=== PATIENT | female | born 1990 | race Two or more races ===

== ENCOUNTER 2021-08-24 19:53 | Emergency (ER) | payer SELFPAY ==
[~2021-08-24] VITALS: Ht 162.6 cm; Wt 95.0 kg
[2021-08-24] MEDS ORDERED: OXYMETAZOLINE HCL NASAL SPRAY 15ML BOTHNSTRLS ONE (23:15)
[2021-08-25 00:03] VITALS: BP 122/72
== END 2021-08-25 00:04 | disposition home or self-care (01) ==
LOC: ER 20:08
DX: B34.8 Other viral infections of unspecified site (principal); R06.02 Shortness of breath; J45.909 Unspecified asthma, uncomplicated; Z20.822 Contact with and (suspected) exposure to COVID-19
CPT/HCPCS: 71045; 87426; 93005; 99285